=== PATIENT | male | born 2000 | race Caucasian/White ===

== ENCOUNTER 2022-07-12 14:19 | Emergency (ER) | payer OTHER, MEDICAID ==
[~2022-07-12] VITALS: Ht 180.3 cm; Wt 114.5 kg
[2022-07-12 14:20] VITALS: BP 139/77
[2022-07-12] MEDS ORDERED: DERMABOND TOPICAL SKIN ADHESIVE TOP ONE (17:50)
== END 2022-07-12 18:09 | disposition home or self-care (01) ==
LOC: M ED 14:19
DX: S61.210A Laceration without foreign body of right index finger without damage to nail, initial encounter (principal); W26.8XXA Contact with other sharp object(s), not elsewhere classified, initial encounter; Y99.0 Civilian activity done for income or pay

== ENCOUNTER 2022-10-28 16:08 | Emergency (ER) | payer MEDICAID, OTHER ==
[~2022-10-28] VITALS: Ht 180.3 cm; Wt 114.2 kg
[2022-10-28 20:30] VITALS: BP 137/86; TEMP 97.1; O2SAT 100
== END 2022-10-28 20:31 | disposition home or self-care (01) ==
LOC: M ED 16:08
DX: S40.861A Insect bite (nonvenomous) of right upper arm, initial encounter (principal); Z91.030 Bee allergy status